=== PATIENT | female | born 1995 | race Two or more races ===

== ENCOUNTER 2021-12-01 14:56 | Emergency (ER) | payer OTHER ==
[2021-12-01 15:29] LABS: BASOPHILS # (AUTO) 0.1 10^3/uL (0.0-0.1); BASOPHILS % (AUTO) 0.7 %; EOSINOPHILS # (AUTO) 0.1 10^3/uL (0.0-0.7); EOSINOPHILS % (AUTO) 1.2 %; HCT - HEMATOCRIT 36.4 % (37.0-47.0); LYMPHOCYTES # (AUTO) 4.5 10^3/uL (1.5-3.5); MEAN CORPUSCULAR HEMOGLOBIN 32.9 pg (27.0-31.0); MEAN CORPUSCULAR HGB CONC 35.7 g/dL (32.0-36.0); MEAN CORPUSCULAR VOLUME 92.2 fL (81.0-99.0); MONOCYTES % (AUTO) 8.5 %; NEUTROPHILS # (AUTO) 6.4 10^3/uL (1.5-6.6); NEUTROPHILS % (AUTO) 52.2 %; PLT - PLATELET COUNT 303 10^3/uL (130-450); RED BLOOD COUNT 3.95 10^6/uL (4.20-5.40); RED CELL DISTRIBUTION WIDTH 12.2 % (12.0-15.0); WHITE BLOOD COUNT 12.2 x10^3/uL (4.8-10.8)
[2021-12-01 15:30] LABS: BILIRUBIN,URINE NEGATIVE (NEGATIVE); GLUCOSE, URINE (UA) NEGATIVE (NEGATIVE); KETONES,URINE (UA) NEGATIVE (NEGATIVE); LEUKOCYTE ESTERASE, URINE NEGATIVE (NEGATIVE); NITRITE,URINE NEGATIVE (NEGATIVE); OCCULT BLOOD,URINE MODERATE (NEGATIVE); PROTEIN,URINE NEGATIVE (NEGATIVE); UROBILINOGEN,URINE 0.2 (NORMAL) E.U./dL (NORMAL)
[2021-12-01 15:32] LABS: CLARITY,URINE CLEAR (CLEAR); HCG UR QUAL NEGATIVE
[2021-12-01 15:39] LABS: BACTERIA,URINE Rare /HPF (None Seen); SQUAMOUS EPITHELIAL CELL,UR RARE Squamous (<= Few); WBC,URINE 0-3 /HPF (0-5)
[2021-12-01 15:42] LABS: ALBUMIN 3.9 g/dL (3.2-5.5); ALBUMIN/GLOBULIN RATIO 1.2 (1.0-2.2); ALKALINE PHOSPHATASE 55 IU/L (42-121); ALT ALANINE AMINOTRANSFERASE 38 IU/L (10-60); AST ASPARTATE AMINOTRANSFERASE 27 IU/L (10-42); BILIRUBIN,TOTAL < 0.2 mg/dL (0.2-1.0); BUN - BLOOD UREA NITROGEN 18 mg/dL (6-20); CALCIUM 8.7 mg/dL (8.5-10.3); CARBON DIOXIDE - CO2 25 mmol/L (21-32); CHLORIDE 103 mmol/L (101-111); CREATININE 0.8 mg/dL (0.4-1.0); GFR - MDRD 86 (>89); GLUCOSE 90 mg/dL (70-100); LIPASE 44 U/L (22-51); POTASSIUM 3.8 mmol/L (3.5-5.0); SODIUM 136 mmol/L (135-145); TOTAL PROTEIN 7.1 g/dL (6.7-8.2)
--- NOTE | 2021-12-01 16:12 | ED Physician Documentation ---
History of Present Illness - Stated complaint Stated Complaint: ABD PX - Chief complaint Chief Complaint: Abd Pain - Additonal information Additional information: 26-year-old female presents emergency department for evaluation of left-sided abdominal pain. She states that its been present for few months but is getting acutely worse. It started initially in the left upper quadrant of her abdomen. Her doctor told her she had a rib out of place despite adjustment she is continue to have pain that now radiates down towards the left lower quadrant. She previously was defecating about 4-5 times a day but is now only defecating 1-2 times a day. She denies painful or bloody bowel movements. No pertinent past surgical history. Denies possibility of . Review of Systems Constitutional: denies: Fever, Chills Nose: reports: Reviewed and negative Throat: reports: Reviewed and negative Cardiac: reports: Reviewed and negative Respiratory: reports: Reviewed and negative GI: reports: Abdominal Pain, Constipation. denies: Nausea, Vomiting, Bloody / black stool : reports: Reviewed and negative Skin: reports: Reviewed and negative Musculoskeletal: reports: Reviewed and negative PD PAST MEDICAL HISTORY - Allergies Allergies/Adverse Reactions: Allergies Allergy/AdvReac Type Severity Reaction Status Date / Time No Known Drug Allergies Allergy Verified 12/01/21 15:09 PD ED PE NORMAL - General General: Alert and oriented X 3, No acute distress, Well developed/nourished - HEENT HEENT: Atraumatic, Moist mucous membranes - Neck Neck: Supple, no meningeal sign, No adenopathy - Cardiac Cardiac: RRR, No murmur, No gallop - Respiratory Respiratory: No respiratory distress, Clear bilaterally - Abdomen Abdomen: Normal bowel sounds, Soft. No: Non tender (Mild tenderness of the left upper quadrant left lower quadrant. No guarding or rebound. 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 Eye Opening: Spontaneous Motor: Obeys Commands Verbal: Oriented GCS Score: 15 Results - Vitals Vitals: Vital Signs - 24 hr 12/01/21 12/01/21 15:06 15:09 Temperature 36.4 C L Heart Rate 75 81 Respiratory 16 Rate Blood Pressure 114/68 117/71 O2 Saturation 99 98 Oxygen O2 Source Room air - Labs Labs: Laboratory Tests 12/01/21 12/01/21 12/01/21 15:20 15:24 15:24 WBC 12.2 H RBC 3.95 L Hgb 13.0 Hct 36.4 L MCV 92.2 MCH 32.9 H MCHC 35.7 RDW 12.2 Plt Count 303 MPV 11.0 H Neut # (Auto) 6.4 Lymph # (Auto) 4.5 H Randall # (Auto) 1.0 Eos # (Auto) 0.1 Baso # (Auto) 0.1 Absolute Nucleated RBC 0.00 Nucleated RBC % 0.0 Sodium 136 Potassium 3.8 Chloride 103 Carbon Dioxide 25 Anion Gap 8.0 BUN 18 Creatinine 0.8 Estimated GFR (MDRD) 86 L Glucose 90 Calcium 8.7 Total Bilirubin < 0.2 L AST 27 ALT 38 Alkaline Phosphatase 55 Total Protein 7.1 Albumin 3.9 Globulin 3.2 Albumin/Globulin Ratio 1.2 Lipase 44 Urine Color YELLOW Urine Clarity CLEAR Urine pH 7.0 Ur Specific Nenzel 1.020 Urine Protein NEGATIVE Urine Glucose (UA) NEGATIVE Urine Ketones NEGATIVE Urine Occult Blood MODERATE H Urine Nitrite NEGATIVE Urine Bilirubin NEGATIVE Urine Urobilinogen 0.2 (NORMAL) Ur Leukocyte Esterase NEGATIVE Urine RBC 6-10 H Urine WBC 0-3 Ur Squamous Epith Cells RARE Squamous Urine Bacteria Rare Ur Microscopic Review INDICATED Urine Culture Comments NOT INDICATED Urine HCG, Qual NEGATIVE - Rads (name of study) CT abd Radiology: Final report received (No kidney stones. No hydronephrosis. Hepatomegaly. A few colonic diverticuli. No diverticulitis demonstrated) PD MEDICAL DECISION MAKING - ED course Complexity details: reviewed results, re-evaluated patient, considered differential, d/w patient ED course: Well-appearing though mildly obese 26-year-old female presents emergency department for evaluation of 2 months of left-sided abdominal pain that is beginning to increase in intensity and frequency. She does report a change in bowel frequency though no sarah constipation. 9 today her CBC shows a very mild leukocytosis of 12,000. Her electrolytes were without acute findings. Her urine did show a small amount of blood but no other signs of infection. A CT scan was completed. No findings to suggest hydronephrosis or ureter colic. There is diverticulosis without-itis. No bowel obstruction. No significant constipation. Cause of her symptoms was not clear. I am advising her to have closer follow-up with her primary. She may benefit from a colonoscopy moving forward. Did recommend Tylenol and ibuprofen for analgesia Departure - Departure Disposition: 01 Home, Self Care Clinical Impression: Left sided abdominal pain, Hepatomegaly, Diverticulosis Condition: Stable Record reviewed to determine appropriate education?: Yes Instructions: Abdominal Pain Comments: You are seen today in the emergency department because you have had worsening abdominal pain on your left side for about 2 months. Today in the emergency department your blood count shows a very very mildly elevated white count of 12,000. The cutoff for normal is about 11,000. In the setting of this ED visit it is not a worrisome number. Your screening electrolytes showed no worrisome findings. Your urine did not show infection but there was a small amount of blood in it. We did do a CT of your abdomen. There are incidental findings made of a mildly enlarged liver as well as some diverticulosis in the left colon. However we do not see anything to suggest a bowel obstruction, kidney or ureter colic, acute appendicitis or any other emergent surgical concern. I recommend that you have close follow-up with your primary care provider. You may benefit from further evaluation with a colonoscopy. The Reason for the blood in the urine is not Clear. I do make the recommendation that you follow- up with your primary care provider to have a repeat urinalysis in about 2 weeks
--- NOTE | 2021-12-01 17:11 | CT Report ---
PROCEDURE: Abdomen/Pelvis WO INDICATIONS: left sided abdominal pain X 1 month TECHNIQUE: Noncontrast 5 mm thick sections acquired from the diaphragms to the symphysis. 5 mm coronal and sagi ttal reformats were then performed. For radiation dose reduction, the following was used: automated exposure control, adjustment of mA and/or kV according to patient size. COMPARISON: None. FINDINGS: Image quality: Excellent. ABDOMEN: Lung bases: Lung bases are clear. Small calcified granuloma at the right lower lobe. Heart size is normal. Solid organs: Liver is prominent in size. Possible hepatic steatosis. Hypodensity in the inferior r ight lobe of liver which has the appearance of a benign cyst or hemangioma. Gallbladder is compressed . Pancreas is normal in contours. No splenomegaly. Small splenule. No adrenal nodules. Kidneys are normal in size, without hydronephrosis or nephrolithiasis. Peritoneum and bowel: Unenhanced bowel loops demonstrate normal wall thickness and caliber. A few co lonic diverticuli. Normal appendix. No free fluid or air. Nodes and vessels: No retroperitoneal or mesenteric adenopathy by size criteria. Aorta and inferior vena cava are normal in caliber. Miscellaneous: No ventral hernias. PELVIS: Genitourinary: Bladder wall thickness is normal. No bladder stone. Anteverted uterus. Miscellaneous: No inguinal hernias or adenopathy. Bones: No suspicious bony lesions. No vertebral body compression fractures. IMPRESSION: 1. No kidney stones. No hydronephrosis. 2. Hepatomegaly. 3. A few colonic diverticuli. No diverticulitis demonstrated. No free fluid. Reviewed by: Mello Flannery MD on 12/01/2021 5:10 PM PDT Approved by: Mello Flannery MD on 12/01/2021 5:10 PM PDT Station ID: [id number]
[2021-12-01 17:57] VITALS: BP 124/74
== END 2021-12-01 17:57 | disposition home or self-care (01) ==
LOC: ED 14:56
DX: R16.0 Hepatomegaly, not elsewhere classified (principal); K57.30 Diverticulosis of large intestine without perforation or abscess without bleeding
CPT/HCPCS: 36415; 80053; 81001; 81003; 81025; 83690; 85025; 87086; 99284